=== PATIENT | female | born 1930 | race Caucasian/White ===

== ENCOUNTER → 2019-07-12 | Outpatient (CLI) | payer MEDICARE, OTHER ==
[~2019-07-12] MED LIST: IOPAMIDOL 370 MG/ML 200 ML INFUS..BTL INJ ONE; SODIUM CHLORIDE 0.9% 500ML 500 ML ONE; SODIUM CHLORIDE 0.9% 50ML 50 ML ONE
[2019-07-12 13:14] LABS: CREATININE, SERUM 1.36 mg/dL (0.57-1.11)
--- NOTE | 2019-07-12 14:56 | Diagnostic Imaging Report ---
EXAM: CT Abdomen and Pelvis WITH intravenous contrast INDICATION: Left lower quadrant abdominal pain COMPARISON: CT abdomen and pelvis of 12/14/2008 TECHNIQUE: Abdomen and pelvis were scanned utilizing a multidetector helical scanner from the lung base to the pubic symphysis after administration of IV contrast. Coronal and sagittal reformations were obtained. Routine protocol was performed. Scan was performed during portal venous phase. IV CONTRAST: 100mL of Isovue 370 ORAL CONTRAST: Water RADIATION DOSE: Total DLP: 362.9 mGy*cm Dose modulation, iterative reconstruction, and/or weight based adjustment of the mA/kV was utilized to reduce the radiation dose to as low as reasonably achievable. FINDINGS: LOWER THORAX: No focal lung base consolidation. Atherosclerotic coronary artery calcifications. Moderate hiatal hernia and apparent distal esophageal wall thickening. HEPATOBILIARY: Diffuse hepatic steatosis. No focal liver lesion. No biliary ductal dilation. Normal gallbladder. SPLEEN: No splenomegaly. PANCREAS: No focal masses or ductal dilatation. ADRENALS: No adrenal nodules. KIDNEYS/URETERS: No hydronephrosis or renal calculi. No renal solid mass lesions. Bilateral simple renal cysts measuring up to 2.4 cm on the right and 2.2 cm on the left. PELVIC ORGANS/BLADDER: 2.8 cm left ovarian cyst. PERITONEUM / RETROPERITONEUM: No free air or fluid. LYMPH NODES: No lymphadenopathy. VESSELS: Diffuse atherosclerotic calcic dictations of the nonaneurysmal abdominal aorta and major branches. GI TRACT: Severe diverticulosis with a 6 cm segment of thickened sigmoid colon associated with multiple diverticuli. Adjacent pericolonic fat stranding. No extraluminal free air or drainable fluid collection. BONES AND SOFT TISSUES: No acute osseous injury. Severe degenerative changes of the visualized spine. Mild diffuse osteopenia. IMPRESSION: Acute uncomplicated sigmoid diverticulitis. Diffuse hepatic steatosis. Diffuse arterial atherosclerotic calcifications including of the coronary arteries. 2.8 cm left ovarian cyst appears simple and is almost certainly benign. No follow-up imaging is recommended. Signed by: Shirley Hernandes MD on 07/12/2019 2:52 PM
== END ==
LOC: CT 12:22
PROVIDERS: ATTEND Family Medicine
DX: R10.32 Left lower quadrant pain (principal)
CPT/HCPCS: 36415; 74177; 82565; 84520; J7040; Q9967